=== PATIENT | female | born 1995 | race Caucasian/White ===

== ENCOUNTER 2016-06-20 14:40 | Emergency (ER) | payer OTHER ==
[2016-06-20] MEDS ORDERED: DEXAMETHASONE 10 MG/ML VIAL PO STA (15:14)
[2016-06-20] MEDS ORDERED: CHERRY SYRUP 10 ML UDC PO ONE (15:20)
[2016-06-20] MEDS ORDERED: DEXAMETHASONE 10 MG/ML VIAL ONE (15:20)
== END 2016-06-20 15:30 | disposition home or self-care (01) ==
DX: J02.9 Acute pharyngitis, unspecified (principal)
CPT/HCPCS: 87070; 87430; 99283; A9270

== ENCOUNTER 2016-06-21 17:43 | Emergency (ER) | payer OTHER | END 2016-06-21 20:04 | disposition home or self-care (01) | DX: N93.8 Other specified abnormal uterine and vaginal bleeding (principal); R03.0 Elevated blood-pressure reading, without diagnosis of hypertension; J45.909 Unspecified asthma, uncomplicated ==

== ENCOUNTER 2016-06-30 10:24 | Emergency (ER) | payer OTHER ==
[2016-06-30] MEDS ORDERED: ONDANSETRON ODT 4 MG TABLET TL STA (11:56)
[2016-06-30] MEDS ORDERED: ONDANSETRON ODT 4 MG TABLET ONE (12:08)
== END 2016-06-30 13:40 | disposition home or self-care (01) ==
DX: E86.0 Dehydration (principal); J45.909 Unspecified asthma, uncomplicated
CPT/HCPCS: 81001; 81025; 99283; Q0162